=== PATIENT | male | born 2005 | race Caucasian/White ===

== ENCOUNTER 2024-04-28 09:00 | Emergency (ER) | payer BC, MEDICAID ==
[2024-04-28] VITALS (8 sets, daily range): BP systolic 137–154; BP diastolic 73–87; PULSE 74–97; RESP 13–16; TEMP 97.8; O2SAT 96–100
[~2024-04-28] VITALS: Ht 177.8 cm; Wt 95.5 kg
[2024-04-28] MEDS ORDERED: ondansetron/PF 4mg/2ml inj IV PRN (10:20)
[2024-04-28] MEDS ORDERED: morphine 2 MG/ML inj. syringe IV PRN (10:20)
[2024-04-28] MEDS ORDERED: proCHLORperazine 10 MG/2 ml inj IV PRN (10:20)
[2024-04-28] MEDS ORDERED: ringers solution, lacted 1,000 ML IV SCH (10:20)
[2024-04-28] MEDS ORDERED: meperidine/PF 25mg/ml syringe IV PRN ×2 (10:20)
[2024-04-28] MEDS ORDERED: morphine 4 MG/ML inj SYRINge IV PRN (10:20)
[2024-04-28] MEDS ORDERED: BUPIVAcaine/PF 2.5mg/ml (0.25%) 10ml vial ONE (10:25)
[2024-04-28] MEDS ORDERED: propofol inj 20 ML IV ONE (10:26)
[2024-04-28] MEDS ORDERED: fentaNYL/PF 50MCG/1 ML 2ML syringe ONE (10:26)
[2024-04-28] MEDS ORDERED: sevoflurane 250ml liquid IH ONE (10:26)
[2024-04-28] MEDS ORDERED: midazolam 1 mg/ML 2ml injection ONE (10:26)
[2024-04-28] MEDS ORDERED: ceFAZolin 1000mg inj ONE ×2 (10:37)
[2024-04-28] MEDS: BUPIVAcaine 0.25% w/Epi /PF 30ml vial IJ ONE (11:00)
[2024-04-28] MEDS: meperidine/PF 25mg/ml syringe IV PRN (11:29)
[2024-04-28] MEDS: HYDROcodone/acetaminophen 5mg/325mg tablet PO ONE (11:53)
== END 2024-04-28 12:25 | disposition home or self-care (01) ==
LOC: ER 09:01
DX: N44.00 Torsion of testis, unspecified (principal); R07.89 Other chest pain
CPT/HCPCS: 54620; 76870; 93005; 93976; 96374; 99285; J0690; J2175; J2250; J2704; J3010; J3490; J7030; Z7506; Z7512; A4215; A4618; A7000; S0020